=== PATIENT | female | born 1965 | race Caucasian/White ===

== ENCOUNTER 2017-08-26 14:41 | Emergency (ER) | payer BC ==
--- NOTE | 2017-08-26 15:11 | RAD ---
THREE VIEWS OF THE LEFT HAND 08/26/2017 COMPARISON: None. HISTORY: Left hand injury. FINDINGS: There appears to be a nondisplaced obliquely oriented distal left radial fracture extending into the radiocarpal joint. There is dorsal soft tissue swelling at the level of the wrist. Alignment appe ars normal on the lateral exam. No additional fracture or evidence of dislocation seen. IMPRESSION: Distal left radial fracture, incompletely assessed on left hand series. A dedicated left wrist seri es is advised. Code T. POS: MARSHA
--- NOTE | 2017-08-26 15:13 | RAD ---
THREE VIEWS OF THE LEFT WRIST 08/26/2017 COMPARISON: None. HISTORY: Trauma, pain. FINDINGS: There is a subtle transverse fracture of the distal left radial metaphysis. It demonstrates a verti denise component as well, extending to the articular surface of the distal left radius involving the ra diocarpal joint. No associated ulnar fracture. No evidence for dislocation. IMPRESSION: Nondisplaced distal left radial fracture with extension into the radiocarpal joint. POS: JUANIS
[2017-08-26] MEDS ORDERED: Ibuprofen 200 MG TAB ONE (15:50)
== END 2017-08-26 16:00 | disposition home or self-care (01) ==
LOC: NAV ERS 14:41
DX: S52.502A Unspecified fracture of the lower end of left radius, initial encounter for closed fracture (principal); I10 Essential (primary) hypertension; E05.90 Thyrotoxicosis, unspecified without thyrotoxic crisis or storm; F17.210 Nicotine dependence, cigarettes, uncomplicated; W18.30XA Fall on same level, unspecified, initial encounter
CPT/HCPCS: 29125

== ENCOUNTER 2024-05-08 20:03 | Emergency (ER) | payer BC | END 2024-05-08 21:15 | disposition home or self-care (01) | LOC: NAV ERS 20:03 | DX: S61.210A Laceration without foreign body of right index finger without damage to nail, initial encounter (principal); F17.210 Nicotine dependence, cigarettes, uncomplicated; Z23 Encounter for immunization; W26.8XXA Contact with other sharp object(s), not elsewhere classified, initial encounter | CPT/HCPCS: 12002; 90471 ==